=== PATIENT | male | born 1955 | race Caucasian/White ===

== ENCOUNTER → 2019-04-18 | Outpatient (CLI) | payer BC ==
[~2019-04-18] MED LIST: ASPIRIN 32325 MG/TAB PO; CELEXA 20MG20 MG/TAB PO; GLUCOSAMINE & C1 CA1 PO; LEXAPRO 10MG10 MG PO; MILK THISTLE200 M1 PO; MOBIC 7.5MG7.5 MG PO; MOTRIN 800800 MG/TAB PO; MULTIPLE VITAMI1 TAB PO; VITAMIN B COMPL1 T16 PO; VITAMIN B12100 MCG PO; VITAMIN C500 MG PO; VITAMIN D 400400 IU PO; VITAMIN D 77 MG1 TAB PO
== END ==
LOC: COL.RAD 12:57
DX: M19.012 Primary osteoarthritis, left shoulder (principal); S46.812A Strain of other muscles, fascia and tendons at shoulder and upper arm level, left arm, initial encounter; M75.82 Other shoulder lesions, left shoulder

== ENCOUNTER → 2020-05-17 | Outpatient (CLI) | payer BC | LOC: COL.RAD 08:35 | DX: M16.12 Unilateral primary osteoarthritis, left hip (principal) | CPT/HCPCS: J3301; Q9967 ==

== ENCOUNTER → 2021-08-06 | Outpatient (CLI) | payer BC | LOC: COL.RAD 13:06 | DX: Z12.2 Encounter for screening for malignant neoplasm of respiratory organs (principal); R91.1 Solitary pulmonary nodule; F17.200 Nicotine dependence, unspecified, uncomplicated; Z98.890 Other specified postprocedural states; Z95.2 Presence of prosthetic heart valve ==

== ENCOUNTER → 2023-11-09 | Outpatient (CLI) | payer OTHER | LOC: COL.RAD 07:23 | DX: Z12.2 Encounter for screening for malignant neoplasm of respiratory organs (principal); Z13.6 Encounter for screening for cardiovascular disorders; F17.210 Nicotine dependence, cigarettes, uncomplicated ==